=== PATIENT | male | born 1965 | race Hispanic/Latino ===

== ENCOUNTER 2019-11-04 14:16 | Inpatient (IN) | payer BC, OTHER ==
[~2019-11-04] VITALS: Ht 172.7 cm; Wt 81.6 kg
[2019-11-04] MEDS ORDERED: IOPAMIDOL 370 MG/ML 200 ML INFUS..BTL INJ ONE (14:49)
[2019-11-04] MEDS ORDERED: SODIUM CHLORIDE 0.9% 50ML 50 ML ONE (14:49)
--- OUTSIDE RECORDS SUMMARY | 2019-11-04 15:04 | XMS REPORT | Continuity of Care Document ---
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 Allergies, Adverse Reactions, Alerts This patient has no known allergies or adverse reactions. Social History Social Habit Start Date Stop Date Quantity Comments Source Sex Assigned At [facility] Alcohol intake 2016-08-03 00:00:00 2016-08-03 00:00:00 Current non-drinker of alcohol (finding) [facility] Smoking Status Start Date Stop Date Source Never smoker [facility] Medications Ordered Medication Name Filled Medication Name Start Date Stop Da te Current Medication? Ordering Clinician Indication Dosage Frequency Signature (SIG) Comments Components Source selenium sulfide 2.3 % Sham 2016-08-03 00:00:00 Yes Dandruff Apply to affected area. [facility] cetirizine (ZYRTEC) 10 mg tablet 2016-08-03 00:00:00 Yes 10mg QD Take 1 tablet by mouth daily. [facility] mometasone (NASONEX) 50 mcg/actuation nasal spray 2016-01-15 00:00:00 Yes Allergic rhinitis, unspecified allergic rhinitis trigger, unspecified rhinitis seasonality 2{spray} QD 2 Sprays by each nostril route daily. [facility] cetirizine (ZYRTEC) 10 mg tablet 2016-01-15 00:00:00 Yes Allergic rhinitis, unspecified allergic rhinitis trigger, unspecified rhinitis seasonality 10mg QD Take 1 tablet by mouth daily. [facility] triamcinolone (KENALOG) 0.1 % ointment 2015-12-19 00:00:00 Yes Rash and other nonspecific skin eruption Q.5D Apply to affected area 2 times daily. [facility] cetirizine (ZYRTEC) 10 mg tablet 2015-01-13 00:00:00 Yes Acute bronchitis with bronchospasm 10mg QD Take 1 tablet by mouth daily. [facility] albuterol (VENTOLIN HFA,PROVENTIL HFA,PROAIR HFA) 90 mcg/act uation inhaler 2015-01-13 00:00:00 Yes Acute bronchitis with bronchos pasm 2{puff} Inhale 2 Puffs by mouth 4 times daily as needed for Wheezing. [facility] Procedures This patient has no known procedures. Plan of Care Planned Activity Planned Date Details Comments Source Future Scheduled Test 2019-12-23 00:00:00 IMM Influenza Seas onal Dec to May (>/= 19 yrs) [code = IMM Influenza Seasonal Dec to May (>/= 19 yrs)] [facility] Future Scheduled Test 2014 00:00:00 Screening for fadia gnant neoplasm of colon (procedure) [code = 747068060] [facility] Encounters Start Date/Time End Date/Time Encounter Type Admission Type [facility] Care Department Encounter ID Source 2017-08-26 00:00:00 2017-08-26 00:00:00 Outpatient [facility] [id number] [facility] Results This patient has no known results.
--- OUTSIDE RECORDS SUMMARY | 2019-11-04 15:04 | XMS REPORT | Clinical Summary ---
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 bronchospasm Active albuterol (VENTOLIN Inhale 2 1 Month 0 HFA,PROVENTIL HFA,PROAIR Puffs by Supply 5 HFA) 90 mcg/actuation mouth 4 times inhalerIndications: Acute daily as bronchitis with needed for bronchospasm Wheezing. Active triamcinolone (KENALOG) Apply to 80 g 0 0.1 % affected area 6 ointmentIndications: Rash 2 times and other nonspecific daily. skin eruption Active mometasone (NASONEX) 50 2 Sprays by 17 g 2 mcg/actuation nasal each nostril 6 sprayIndications: route daily. Allergic rhinitis, unspecified allergic rhinitis trigger, unspecified rhinitis seasonality Active cetirizine (ZYRTEC) 10 mg Take 1 tablet 30 tablet 2 tabletIndications: by mouth 6 Allergic rhinitis, daily. unspecified allergic rhinitis trigger, unspecified rhinitis seasonality Active selenium sulfide 2.3 % Apply to 1 Bottle 0 ShamIndications: Dandruff affected 7 area. Active cetirizine (ZYRTEC) 10 mg Take 1 tablet 30 tablet 0 tablet by mouth 7 daily. Active Problems No known active problems Immunizations Name Administration Dates Next Due Influenza Vaccine 01/15/2016 (Deferred: Contr aindication), 01/13/2015 (Deferred: Vaccine Unavailab le) Social History Date Tobacco Use Types Packs/Day Years Used Never Smoker Drinks/Week oz/Week Comments Alcohol Use No Sex Assigned at Date Recorded Not on file Industry Job Start Date Occupation Not on file Not on file Not on file Travel End Travel History Travel Start No recent travel history available. Last Filed Vital Signs Not on file Plan of Treatment Health Maintenance Due Date Last Done Comments Colorectal Cancer Scrn 2014 Annual (FIT/FOBT) Age 50 to 75 IMM Influenza Seasonal 12/23/2019Dec to May (>/= 19 yrs) Results Not on fileafter 11/03/2018 Insurance Type Payer Benefit Subscriber ID Effective Phone Address Plan / Dates Group [facility] SELF-PAY SELF-PAY xxxxxx [id number] [id number] [place] [address] Guarantor Name Account Relation to Date of Phone Shauna sarmiento Address Type Patient Melissa Lowe Personal/F Head of 1965 [address] (Home) [place], [place] [address] (Self)
--- NOTE | 2019-11-04 15:44 | Diagnostic Imaging Report ---
EXAM: CT Chest WITH contrast- Pulmonary Embolism Protocol INDICATION: Shortness of breath , viral pneumonia COMPARISON: None TECHNIQUE: Chest was scanned utilizing a multidetector helical scanner from the lung apex through the level of the diaphragm after administration of IV contrast. Thin section reconstructions were obtained with special concentration on the pulmonary arteries. Coronal and sagittal reformations were obtained. Pulmonary embolism protocol was performed. IV CONTRAST: 100 cc of Isovue 370 RADIATION DOSE: Total DLP: 492 mGy*cm Dose modulation, iterative reconstruction, and/or weight based adjustment of the mA/kV was utilized to reduce the radiation dose to as low as reasonably achievable. COMPLICATIONS: None FINDINGS: LINES/ TUBES: None. PULMONARY ARTERIES: No filling defect is identified within the pulmonary arteries to the segmental level. The subsegmental pulmonary arteries are not well opacified. Main pulmonary artery measures 3.2 cm in diameter. No right heart strain. LUNGS AND AIRWAYS: The central airways are patent. Multifocal groundglass and consolidative opacities involve all lobes of both lungs, predominantly the lower lobes. PLEURA: The pleural spaces are clear. HEART AND MEDIASTINUM: Partially visualized thyroid gland appears unremarkable. No supraclavicular, axillary, mediastinal, hilar, or internal mammary lymphadenopathy. The heart is not enlarged. No pericardial effusion. UPPER ABDOMEN: 1.5 cm hypodense lesion in the right liver, most likely a cyst. No acute findings in the upper abdomen. BONES: No acute osseous injury. No suspicious lytic or blastic lesions. SOFT TISSUES: Unremarkable. IMPRESSION: Bilateral multifocal lower lobe predominant groundglass and consolidative opacities consistent with known viral pneumonia. No pulmonary embolism. Signed by: Oscar Carey MD on 11/04/2019 3:41 PM
[2019-11-04] MEDS ORDERED: DEXAMETHASONE SOD PHOS 10 MG/1 ML VIAL IV ONE (16:00)
[2019-11-04] MEDS ORDERED: CEFTRIAXONE SOD 1 GM VIAL IV ONE (16:00)
--- NOTE | 2019-11-04 16:08 | Emergency Department Note ---
History of Present Illnes History of Present Illness Chief Complaint: COVID PUI History of Present Illness This is a 53 year old male Chief Complaint Comment PT STATED HE TESTED POSTIVE FOR COVID LAST FRIDAY AND HE FEELS LIKE HE IS GETTING WORSE, PT COMPLAINS OF SOB, BODY ACHES, FEVER, AND INSOMNIA X7 DAYS, PT HAS BEEN TAKING STEROIDS AND AMOXICILLIN SINCE LAST WEEK, PT SATING 88% ON ROOM AIR, PT PLACED ON 2LNC AND IS NOW SATING 96%, NO DISRESS NOTED IN TRIAGE. . Historian: Patient Arrival Mode: Car Onset (how long ago): day(s) (5) Location: chest Quality: cough Radiation: Denies non-radiation, Denies back, Denies neck, Denies extremity, Denies abdomen, Denies periumbilical, Denies flank, Denies proximal, Denies distal, Denies other Severity: moderate Onset quality: gradual Duration (how long): day(s) (5) Timing of current episode: constant Progression: waxing and waning Chronicity: new Context: Denies recent illness, Denies recent surgery, Denies recent immobilization, Denies recent travel, Denies trauma/injury, Denies new medications, Denies hx of DVT/PE, Denies non-compliance w/ medications, Denies other Relieving factors: none Exacerbating factors: none Associated symptoms: Reports denies other symptoms, Reports cough, Reports fever/chills, Reports shortness of breath; Denies confusion, Denies chest pain, Denies diaphoresis, Denies headaches, Denies loss of appetite, Denies malaise, Denies nausea/vomiting, Denies rash, Denies seizure, Denies syncope, Denies weakness, Denies other Treatments prior to arrival: none Past Medical/Family History Physician Review I have reviewed the patient's past medical and family history. Any updates have been documented here. Past Medical History Recent Fever: Yes Clinical Suspicion of Infectio: No New/Unexplained Change in Ment: No Past Medical History: None Past Surgical History: None Social History Smoking Cessation: Never Smoker Counseling Performed: No Alcohol Use: None Any Illegal Drug Use: No Other Any Pre-Existing Lines (PICC,: No Review of Systems Review of Systems Constitutional: Reports as per HPI EENTM: Reports no symptoms Cardiovascular: Reports no symptoms Respiratory: Reports as per HPI Gastrointestinal: Reports no symptoms Genitourinary: Reports no symptoms Musculoskeletal: Reports no symptoms Integumentary: Reports no symptoms Neurological: Reports no symptoms Psychological: Reports no symptoms Endocrine: Reports no symptoms Hematological/Lymphatic: Reports no symptoms Physical Exam Related Data Allergies: Coded Allergies: No Known Allergies (Unverified , 11/04/19) Triage Vital Signs Vital Signs Date Time Temp Pulse Resp B/P (MAP) Pulse Ox O2 Delivery O2 Flow Rate FiO2 11/04/19 14:20 98.2 95 18 133/76 88 Room Air 11/04/19 14:25 2.0 Vital signs reviewed: Yes Physical Exam CONSTITUTIONAL Constitutional: Present well-developed, Present well-nourished HENT HENT: Present normocephalic, Present atraumatic, Present oropharynx clear/moist, Present nose normal HENT L/R: Present left ext ear normal, Present right ext ear normal EYES Eyes: Reports PERRL, Reports conjunctivae normal NECK Neck: Present ROM normal PULMONARY Pulmonary: Present effort normal, Present rhonchi (bilat) CARDIOVASCULAR Cardiovascular: Present regular rhythm, Present heart sounds normal, Present capillary refill normal, Present normal rate GASTROINTESTINAL Abdominal: Present soft, Present nontender, Present bowel sounds normal GENITOURINARY Genitourinary: Present exam deferred SKIN Skin: Present warm, Present dry MUSCULOSKELETAL Musculoskeletal: Present ROM normal NEUROLOGICAL Neurological: Present alert, Present oriented x 3, Present no gross motor or sensory deficits PSYCHOLOGICAL Psychological: Present mood/affect normal, Present judgement normal Results Laboratory Lab results reviewed: Yes Imaging Imaging results reviewed: Yes Critical Care Time Total Critical Care Time (min): 35 Critical care time exclusive o: separately billable procedures Critcal care necessary due to: other (hypoxia) Critcal care time spent by me: develop tx plan w patient/surrogate, discussion w consultants, discussion w primary provider, evaluation patient response to tx, examination of patient, obtaining hx from patient/surrogate, order/perform tx or interventions Assessment & Plan Medical Decision Making MDM pneumonia bronchitis Reassessment Reassessment same Assessment & Plan Final Impression: (1) Pneumonia due to COVID-19 virus (2) Hypoxia Depart Disposition: ADMITTED Last Vital Signs Date Time Temp Pulse Resp B/P (MAP) Pulse Ox O2 Delivery O2 Flow Rate FiO2 11/04/19 15:48 83 16 118/68 95 Nasal Cannula 2.0 8/13/20 14:20 98.2 Medications in the ED Iopamidol 74,000 mg STK-MED ONCE INJ ; Start 11/04/19 at 14:49; Stop 11/04/19 at 14:43; Status DC Sodium Chloride 50 ml @ ud STK-MED ONCE .ROUTE ; Start 11/04/19 at 14:49; Stop 11/04/19 at 14:43; Status DC Dexamethasone Sodium Phosphate 10 mg ONCE ONCE IV ; Start 11/04/19 at 16:00; Stop 11/04/19 at 16:01; Status UNV Ceftriaxone Sodium 1 gm ONCE ONCE IV ; Start 11/04/19 at 16:00; Stop 11/04/19 at 16:01; Status UNV CORAZON ROBINS MD Nov 04, 2019 16:07
[2019-11-04] MEDS ORDERED: CEFTRIAXONE SOD 1 GM/NS 50 ML 50 ML IV ONE ×2 (16:13→16:15)
[2019-11-04] MEDS ORDERED: SODIUM CHLORIDE 0.9% 1000ML 1,000 ML IV SCH (16:15)
--- NOTE | 2019-11-04 16:18 | NUR ---
[facility] CALLED FOR PATIENT TRANSFER ETA 45 MIN
--- OUTSIDE RECORDS SUMMARY | 2019-11-04 16:20 | XMS REPORT | Continuity of Care Document ---
Author Author [facility] t Organization [facility] Address [address] [place] [address] Phone Unavailable Care Team Providers Care Jail Guard Name Role Phone CORAZON ROBINS Unavailable Problems This patient has no known problems. Allergies, Adverse Reactions, Alerts This patient has no known allergies or adverse reactions. Social History Social Habit Start Date Stop Date Quantity Comments Source Sex Assigned At [facility] Alcohol intake 2016-08-03 00:00:00 2016-08-03 00:00:00 Current non-drinker of alcohol (finding) [facility] Smoking Status Start Date Stop Date Source Never smoker [facility] Medications Ordered Medication Name Filled Medication Name Start Date Stop Da te Current Medication? Ordering Clinician Indication Dosage Frequency Signature (SIG) Comments Components Source selenium sulfide 2.3 % Sham 2016-08-03 00:00:00 Yes Dandruff Apply to affected area. [facility] cetirizine (ZYRTEC) 10 mg tablet 2016-08-03 00:00:00 Yes 10mg QD Take 1 tablet by mouth daily. [facility] mometasone (NASONEX) 50 mcg/actuation nasal spray 2016-01-15 00:00:00 Yes Allergic rhinitis, unspecified allergic rhinitis trigger, unspecified rhinitis seasonality 2{spray} QD 2 Sprays by each nostril route daily. [facility] cetirizine (ZYRTEC) 10 mg tablet 2016-01-15 00:00:00 Yes Allergic rhinitis, unspecified allergic rhinitis trigger, unspecified rhinitis seasonality 10mg QD Take 1 tablet by mouth daily. [facility] triamcinolone (KENALOG) 0.1 % ointment 2015-12-19 00:00:00 Yes Rash and other nonspecific skin eruption Q.5D Apply to affected area 2 times daily. [facility] cetirizine (ZYRTEC) 10 mg tablet 2015-01-13 00:00:00 Yes Acute bronchitis with bronchospasm 10mg QD Take 1 tablet by mouth daily. [facility] albuterol (VENTOLIN HFA,PROVENTIL HFA,PROAIR HFA) 90 mcg/act uation inhaler 2015-01-13 00:00:00 Yes Acute bronchitis with bronchos pasm 2{puff} Inhale 2 Puffs by mouth 4 times daily as needed for Wheezing. [facility] Procedures This patient has no known procedures. Plan of Care Planned Activity Planned Date Details Comments Source Future Scheduled Test 2019-12-23 00:00:00 IMM Influenza Seas onal Dec to May (>/= 19 yrs) [code = IMM Influenza Seasonal Dec to May (>/= 19 yrs)] [facility] Scheduled Test 2014 00:00:00 Screening for fadia gnant neoplasm of colon (procedure) [code = 421020638] [facility] Encounters Start Date/Time End Date/Time Encounter Type Admission Type [facility] Facility Care Department Encounter ID Source 2017-08-26 00:00:00 2017-08-26 00:00:[address] [facility] [id number] [facility] Results Test Description Test Time Test Comments Results Result Comments Source CT CHEST WITH CONTRAST-HOPD 2019-11-04 15:36:00 [place] [address] Patient Name: SHANA LOWE MR #: [id number] : 1965 Age/Sex: 53/M Req #: [id number] Adm Physician: Ordered by: CORAZON ROBINS MD Report #: [id number] Location: [facility] Room/Bed: Procedure: HOPD/CT CHEST WITH CONTRAST-HOPD Exam Date: 11/04/19 Exam Time: 1528 REPORT STATUS: Signed EXAM: CT Chest WITH contrast- Pulmonary Embolism Protocol INDICATION: Shortness of breath , viral pneumonia COMPARISON: None TECHNIQUE: Chest was scanned utilizing a multidetector helical scanner from the lung apex through the level of the diaphragm after administration of IV contrast. Thin section reconstructions were obtained with special concentration on the pulmonary arteries. Coronal and sagittal reformations were obtained. Pulmonary embolism protocol was performed. IV CONTRAST: 100 cc of Isovue 370 RADIATION DOSE: Total DLP: 492 mGy*cm Dose modulation, iterative reconstruction, and/or weight based adjustment of the mA/kV was utilized to reduce the radiation dose to as low as reasonably achievable. COMPLICATIONS: None FINDINGS: LINES/ TUBES: None. PULMONARY ARTERIES: No filling defect is identified within the pulmonary arteries to the segmental level. The subsegmental pulmonary arteries are not well opacified. Main pulmonary artery measures 3.2 cm in diameter. No right heart strain. LUNGS AND AIRWAYS: The central airways are patent. Multifocal groundglass and consolidative opacities involve all lobes of both lungs, pr edominantly the lower lobes. PLEURA: The pleural spaces are clear. HEART AND MEDIASTINUM: Partially visualized thyroid gland appears unremarkable. No supraclavicular, axillary, mediastinal, hilar, or internal mammary lymphadenopathy. The heart is not enlarged. No pericardial effusion. UPPER ABDOMEN: 1.5 cm hypodense lesion in the right liver, most likely a cyst. No acute findings in the upper abdomen. BONES: No acute osseous injury. No suspicious lytic or blastic lesions. SOFT TISSUES: Unremarkable. IMPRESSION: Bilateral multifocal lower lobe predominant groundglass and consolidative opacities consistent with known viral pneumonia. No pulmonary embolism. Signed by: Stephanie Winston MD on 11/04/2019 3:41 PM Dictated By: STEPHANIE WINSTON MD [id number] Transcribed By: CHARLES on 11/04/19 1541 COPY TO: CORAZON ROBINS MD
--- OUTSIDE RECORDS SUMMARY | 2019-11-04 16:20 | XMS REPORT | Clinical Summary ---
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
[2019-11-04] MEDS ORDERED: ONDANSETRON HCL INJ 2MG/ML 2ML 2 MG/ML VIAL IV PRN (17:30)
[2019-11-04] MEDS ORDERED: GUAIFENESIN 600MG/DEXTROMETHORPHAN 30MG TABSR PO PRN (17:30)
[2019-11-04] MEDS ORDERED: ACETAMINOPHEN 325 MG TAB PO PRN (17:30)
[2019-11-04] MEDS ORDERED: ALBUTEROL SULFATE HFA 8GM INHALATION AEROSOL INH PRN (17:30)
[2019-11-04] MEDS ORDERED: HYDRALAZINE HCL 20 MG/ML VIAL IV PRN (17:30)
--- NOTE | 2019-11-04 17:45 | NUR ---
Phone report received from Willow GUTIERREZ, Free standing ED. Patient received to COVID unit in no acute distress. Supplemental oxygen in place 3L via nasal cannula. Patient was educated on fall risk precautions and to use the call light with needs. Patient verbalized understanding. Will continue to monitor.
[2019-11-04 18:00] VITALS: BP 124/79
--- NOTE | 2019-11-04 20:20 | NUR ---
pulmonary consult dictated [id number] imp Severe COVID 19 pneumonia Hypoxemia Transaminitis, likely COVID 19 related mild allergies mild GERD NON-smoker lifetime rec steroids check inflammatory markers remdesivir, follow LFTs (likely to improve) consider convalescent plasma based on progress over 1st day oxygen by protocol close supportive care ID consult Patient to receive Remdesivir fact sheet from staff. Patient knows it is an investigational drug. Patient is aware he can decline the medication and still receive treatment. Patient agrees to receive this medication. Thank you Dr Dumont.
[2019-11-04] MEDS: AZITHROMYCIN 500MG/NS 250 ML 250 ML IV SCH (20:27)
[2019-11-04] MEDS: ENOXAPARIN SOD INJ 40 MG/0.4 ML SYR SC SCH (20:27)
[2019-11-04 20:59] VITALS: BP 121/80
[2019-11-04] MEDS ORDERED: REMDESIVIR 200MG/NS 100ML 200 MG in SODIUM CHLORIDE 0.9% 100 ML 100 ML IV ONE (21:00)
[2019-11-04 21:08] VITALS: BP 121/80
[2019-11-04] MEDS: THIAMINE HCL 100 MG TAB PO SCH (21:44)
[2019-11-04] MEDS: TEMAZEPAM 15 MG CAP PO PRN (21:45)
--- NOTE | 2019-11-04 22:06 | Consultation ---
DATE OF CONSULTATION: 11/04/2019 Pulmonary Medicine Consult CHIEF COMPLAINT: COVID-19 pneumonia. HISTORY OF PRESENT ILLNESS: Mr. Lowe is a pleasant 53-year-old gentleman with COVID-19 pneumonia. The patient first experienced symptoms on Friday October 25, 2019. The patient had some sore throat. The patient went to doctor a few days later and started antibiotics and steroids. He was tested for coronavirus 19, which he tells me he was a positive on the test result he got. The patient, therefore, continued treatment as outpatient. However, he became more and more dyspneic. Today, he came to emergency room. Oxygen saturation was 88% on room air. He had a CAT scan of the lungs showing large pneumonia. I am consulted. PAST MEDICAL HISTORY: Mild allergies, mild GERD. MEDICATIONS: Pepto-Bismol. Rare ujan-njy-jorjhyc allergy medicines. Recent amoxicillin and steroids. ALLERGIES: NO KNOWN DRUG ALLERGIES. FAMILY HISTORY: Noncontributory. SOCIAL HISTORY: No smoking. No drinking. No drugs. 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 REVIEW OF SYSTEMS: GENERAL: No weight changes. OPHTHALMOLOGIC: No vision changes. ENT: No blood in mouth. ENDOCRINE: No thyroid disease. PULMONARY: No hemoptysis. CARDIAC: No heart attack. GI: No blood per rectum. : No bleeding when urinating. IMMUNOLOGIC: No lupus. DERMATOLOGIC: No rash. NEUROLOGIC: No seizures. OBJECTIVE: VITAL SIGNS: Afebrile right now, vital signs noted, reviewed per the chart record. Heart rate 76, blood pressure 124/79. GENERAL: In no acute distress. Alert and calm in bed. HEENT: Normocephalic and atraumatic. NECK: Supple. Throat midline. LUNGS: Bilateral air entry, few rhonchi. CARDIOVASCULAR: S1, S2. No murmurs, rubs, or gallops. ABDOMEN: Soft and nontender. EXTREMITIES: No clubbing. No cyanosis. There is no edema. INTEGUMENT: No rash. No purpura. LABORATORY DATA: 134 sodium, 3.7 potassium, 99 chloride, 22 bicarbonate, 13 BUN and 1.1 creatinine. AST 106, ALT 87, albumin 3.5. 13 white count, 46 hematocrit, 205 platelets. Chest radiography as above. IMPRESSION AND PLAN: 1. COVID-19 pneumonia. 2. Hypoxemia, severe. 3. Transaminitis, likely COVID-19 related. 4. Hyponatremia, mild. 5. Mild allergies. 6. Mild gastroesophageal reflux disease. Recommend steroids. Check inflammatory markers. Give remdesivir. The patient is asking for temazepam for recent insomnia, which I will give. Follow up closely. The patient at significant risk of due to large-sized pneumonia. it is very important prognostically. Continue oxygen by protocol. Thank you very much, Dr. Dumont for this consult. Please call for questions. MD COTY Joyner/MODL /[id number]
[2019-11-04 23:34] VITALS: BP 122/69
[2019-11-05] VITALS (8 sets, daily range): BP systolic 114–138; BP diastolic 69–90
[2019-11-05 05:42] LABS: BASOPHILS % 0.2 % (0.0-1.0); HEMOGLOBIN 14.2 g/dL (14.0-18.0); LYMPHOCYTES # (AUTO) 0.7 (1.0-3.2); LYMPHOCYTES % 11.4 % (18.0-39.1); MEAN CORPUSCULAR HEMOGLOBIN 29.1 pg (28-32); MEAN CORPUSCULAR VOLUME 88.1 fL (81-99); MONOCYTES # (AUTO) 0.3 (0.2-0.8); MONOCYTES % 4.1 % (4.4-11.3); NEUTROPHILS # (AUTO) 5.1 (2.1-6.9); NEUTROPHILS % 82.7 % (38.7-80.0); PLATELET COUNT 218 x10e3/uL (140-360); RED BLOOD COUNT 4.88 x10e6/uL (4.3-5.7); RED CELL DISTRIBUTION WIDTH 12.7 % (11.7-14.4)
[2019-11-05 06:06] LABS: ALANINE AMINOTRANSFERASE 110 IU/L (0-55); ALBUMIN 2.8 g/dL (3.5-5.0); ALBUMIN/GLOBULIN RATIO 0.6 (0.8-2.0); ALKALINE PHOSPHATASE 99 IU/L (40-150); ANION GAP 13.9 mmol/L (8-16); BLOOD UREA NITROGEN 15 mg/dL (7-26); BUN/CREATININE RATIO 20 (6-25); CARBON DIOXIDE 26 mmol/L (22-29); CHLORIDE 106 mmol/L (98-107); CREATININE, SERUM 0.76 mg/dL (0.72-1.25); EST GLOMERULAR FILTRATION RATE > 60 ML/MIN (60-); GLUCOSE 134 mg/dL (74-118); POTASSIUM 4.9 mmol/L (3.5-5.1); SODIUM 141 mmol/L (136-145)
--- NOTE | 2019-11-05 06:07 | NUR ---
SPOKE WITH JOANN CASAS'S OFFICE SADDLE STITCHING MACHINE OPERATOR REGARDING THIS CONSULT
[2019-11-05 06:28] LABS: LACTATE DEHYDROGENASE 332 IU/L (125-220)
[2019-11-05 06:36] LABS: CREATINE KINASE 50 IU/L (30-200); LIPASE 28 U/L (8-78)
[2019-11-05 06:44] LABS: FERRITIN > 2000.00 ng/mL (21.81-274.66)
--- NOTE | 2019-11-05 07:00 | NUR ---
Report received from PM shift nurse, [place]. Patient found resting in bed in no acute distress. Patient was educated on fall risk precautions and to call with needs. Patient states no needs at this time. Patient verbalized understanding. Will continue to monitor.
[2019-11-05] MEDS: FAMOTIDINE 20 MG TAB PO SCH ×2 (07:55→16:51)
[2019-11-05] MEDS: ZINC SULFATE 220 MG CAP PO SCH (08:28)
[2019-11-05] MEDS: ENOXAPARIN SOD INJ 40 MG/0.4 ML SYR SC SCH ×2 (08:28→20:51)
[2019-11-05] MEDS: THIAMINE HCL 100 MG TAB PO SCH ×2 (08:28→20:51)
[2019-11-05] MEDS: ASCORBIC ACID 500 MG TAB PO SCH ×2 (08:28→16:51)
[2019-11-05] MEDS: CEFTRIAXONE SOD 1 GM/NS 50 ML 50 ML IV SCH (08:52)
[2019-11-05] MEDS: DEXAMETHASONE SOD PHOS INJ 4 MG/ML VIAL IV SCH (08:52)
--- NOTE | 2019-11-05 09:01 | Diagnostic Imaging Report ---
EXAM: CHEST SINGLE (PORTABLE) DATE: 11/05/2019 7:15 AM INDICATION: The prior pneumonia COMPARISON: CT chest without contrast from 11/04/2019 FINDINGS: The trachea is midline. There are patchy airspace opacities identified bilaterally with a lower lung predominance, as noted on the prior CT examination. There is no evidence for pneumothorax or significant pleural effusion. The cardiomediastinal silhouette is within normal limits. No acute osseous abnormalities identified. IMPRESSION: Patchy airspace opacities identified bilaterally concerning for a multifocal/viral infectious process. Signed by: Dr. Alexander Daniel MD on 11/05/2019 8:58 AM
[2019-11-05 10:29] LABS: LYMPHOCYTES % (MANUAL) 9 % (19-48); MONOCYTES % (MANUAL) 3 % (3.4-9.0); NEUTROPHILS % (MANUAL) 88 % (40-74)
--- NOTE | 2019-11-05 14:25 | Consultation ---
DATE OF CONSULTATION: HISTORY OF PRESENT ILLNESS: Mr. Lowe, who is a very pleasant 53-year-old male, comes in with shortness of breath and cough. He has been sick for 5 days. The patient's symptoms started on October 24 and went to see the doctor, was tested and he was positive. The patient comes in the emergency room with shortness of breath. His O2 saturation was 88. He had a CAT scan of the lung, which showed pneumonia. The patient when I saw him, he is currently on 4 L. PHYSICAL EXAMINATION: GENERAL: Currently alert. VITAL SIGNS: Stable, currently afebrile. HEENT: Not icteric. NECK: Supple. CHEST: Crackles. HEART: S1 and S2. ABDOMEN: Soft. IMPRESSION: COVID-19, superimposed bacterial pneumonia. Rocephin 1 g daily 5 days, azithromycin 500 mg daily for 3 days, dexamethasone 6 mg daily for 10 days, remdesivir 200 mg daily now and then 100 mg daily for 4 days. ADDENDUM: Discussed with the patient. The patient did agree to remdesivir. The patient is aware it is still investigational drug. We will assess daily. I will follow with you. Discussed with medical team. MD GIO Wahl/BRODY /[id number]
[2019-11-05] MEDS ORDERED: REMDESIVIR 100MG/NS 100ML 100 MG IV SCH (15:00)
--- NOTE | 2019-11-05 16:01 | Progress Note ---
DATE: SUBJECTIVE: The patient feels better. He is on 4 L of oxygen. He still has some dyspnea and some cough. PHYSICAL EXAMINATION: VITAL SIGNS: The patient is afebrile. The vital signs are stable. HEENT: Shows no facial swelling or erythema. The oropharynx is normal. LYMPHATIC: Shows no submandibular, cervical, or supraclavicular adenopathy. CARDIAC: Reveals regular rate and rhythm with normal S1 and S2. LUNGS: Auscultation of lungs reveals rhonchorous breath sounds bilaterally. There is no wheezing. ABDOMEN: Soft and nontender. There is no rebound or guarding. EXTREMITIES: Shows no leg edema or calf tenderness. No cyanosis or clubbing. SKIN: Shows no rashes. IMPRESSION: 1. Viral pneumonia and COVID-19 infection. 2. Viral hepatitis secondary to COVID. 3. Gastroesophageal reflux. PLAN: 1. Continue dexamethasone and antibiotics. 2. Remdesivir. 3. Continue oxygen. 4. Out of bed as tolerated. Jerod Verdugo MD [facility]/MODL /[id number]
[2019-11-05] MEDS: AZITHROMYCIN 500MG/NS 250 ML 250 ML IV SCH (16:51)
[2019-11-05] MEDS: REMDESIVIR 100MG/NS 100ML 100 MG in SODIUM CHLORIDE 0.9% 100 ML 100 ML IV SCH (21:00)
[2019-11-05] MEDS: TEMAZEPAM 15 MG CAP PO PRN (22:47)
[2019-11-06] VITALS (8 sets, daily range): BP systolic 102–132; BP diastolic 69–82
[2019-11-06 04:05] LABS: BASOPHILS % 0.1 % (0.0-1.0); HEMATOCRIT 41.2 % (38.2-49.6); HEMOGLOBIN 13.8 g/dL (14.0-18.0); LYMPHOCYTES % 11.9 % (18.0-39.1); MEAN CORPUSCULAR HEMOGLOBIN 29.1 pg (28-32); MEAN CORPUSCULAR HGB CONC 33.5 g/dL (31-35); MEAN CORPUSCULAR VOLUME 86.9 fL (81-99); MONOCYTES # (AUTO) 0.5 (0.2-0.8); MONOCYTES % 6.3 % (4.4-11.3); NEUTROPHILS # (AUTO) 6.5 (2.1-6.9); NEUTROPHILS % 80.6 % (38.7-80.0); PLATELET COUNT 225 x10e3/uL (140-360); RED BLOOD COUNT 4.74 x10e6/uL (4.3-5.7); RED CELL DISTRIBUTION WIDTH 12.6 % (11.7-14.4)
[2019-11-06 04:22] LABS: ALANINE AMINOTRANSFERASE 126 IU/L (0-55); ALBUMIN 2.6 g/dL (3.5-5.0); ALBUMIN/GLOBULIN RATIO 0.7 (0.8-2.0); ALKALINE PHOSPHATASE 90 IU/L (40-150); ANION GAP 15.2 mmol/L (8-16); BLOOD UREA NITROGEN 22 mg/dL (7-26); BUN/CREATININE RATIO 28 (6-25); CALCIUM 8.6 mg/dL (8.4-10.2); CARBON DIOXIDE 22 mmol/L (22-29); CHLORIDE 107 mmol/L (98-107); CREATININE, SERUM 0.78 mg/dL (0.72-1.25); EST GLOMERULAR FILTRATION RATE > 60 ML/MIN (60-); GLUCOSE 122 mg/dL (74-118); POTASSIUM 4.2 mmol/L (3.5-5.1); SODIUM 140 mmol/L (136-145)
--- NOTE | 2019-11-06 06:58 | NUR ---
REPORT RECEIVED FROM GREGG GUTIERREZ, PM SHIFT. PATIENT RECEIVED RESTING IN BED IN NO ACUTE DISTRESS. PATIENT EDUCATED ON FALL RISK AND TO CALL WITH NEEDS. PATIENT VERBALIZED UNDERSTANDING. CALL LIGHT AND BELONGINGS WITHIN REACH. WILL CONTINUE TO MONITOR.
[2019-11-06] MEDS: CEFTRIAXONE SOD 1 GM/NS 50 ML 50 ML IV SCH (07:51)
[2019-11-06] MEDS: FAMOTIDINE 20 MG TAB PO SCH ×2 (07:51→17:04)
[2019-11-06] MEDS: DEXAMETHASONE SOD PHOS INJ 4 MG/ML VIAL IV SCH (07:52)
[2019-11-06] MEDS: ENOXAPARIN SOD INJ 40 MG/0.4 ML SYR SC SCH ×2 (07:52→21:00)
[2019-11-06] MEDS: ZINC SULFATE 220 MG CAP PO SCH (07:52)
[2019-11-06] MEDS: ASCORBIC ACID 500 MG TAB PO SCH ×2 (07:52→17:04)
[2019-11-06] MEDS: THIAMINE HCL 100 MG TAB PO SCH ×2 (07:52→21:00)
--- NOTE | 2019-11-06 11:40 | NUR ---
VENIPUNCTURE PERFORMED TO RIGHT FOREARM USING ASEPTIC TECHNIQUE FOR MD ORDERED LABS: CMP, CBC WITH DIFF. PRESSURE HELD; BANDAID APPLIED. PT TOLERATED WELL. TUBES LABELED AND INITIALED AND WALKED TO CLINICAL LAB.
--- NOTE | 2019-11-06 12:09 | Progress Note ---
DATE: SUBJECTIVE: Mr. Lowe is doing better. No new complaints. PHYSICAL EXAMINATION: VITAL SIGNS: Stable, afebrile. HEENT: He is not icteric. NECK: Supple. CHEST: Clear. HEART: S1, S2. ABDOMEN: Soft. Bowel sounds present. EXTREMITIES: No edema. SKIN: No rash. IMPRESSION AND PLAN: Coronavirus disease-19, to finish the course of treatment, five days of remdesivir, five days of Rocephin, 3 days of azithromycin, Lovenox as ordered, and also on albuterol and dexamethasone. We talked again about convalescent plasma. He is going to think about it. He is really not too eager to have it, which is fine, so we will await. MD GIO Whal/BRODY /[id number]
[2019-11-06] MEDS: AZITHROMYCIN 500MG/NS 250 ML 250 ML IV SCH (17:49)
[2019-11-06] MEDS: REMDESIVIR 100MG/NS 100ML 100 MG in SODIUM CHLORIDE 0.9% 100 ML 100 ML IV SCH (21:00)
[2019-11-06] MEDS: TEMAZEPAM 15 MG CAP PO PRN (23:20)
[2019-11-07] VITALS (8 sets, daily range): BP systolic 111–148; BP diastolic 67–89
[2019-11-07 05:33] LABS: ALANINE AMINOTRANSFERASE 128 IU/L (0-55); ALBUMIN 2.7 g/dL (3.5-5.0); ALBUMIN/GLOBULIN RATIO 0.8 (0.8-2.0); ALKALINE PHOSPHATASE 91 IU/L (40-150); ANION GAP 14.6 mmol/L (8-16); BLOOD UREA NITROGEN 20 mg/dL (7-26); BUN/CREATININE RATIO 25 (6-25); CALCIUM 8.4 mg/dL (8.4-10.2); CARBON DIOXIDE 24 mmol/L (22-29); CHLORIDE 105 mmol/L (98-107); EST GLOMERULAR FILTRATION RATE > 60 ML/MIN (60-); GLUCOSE 101 mg/dL (74-118); POTASSIUM 4.6 mmol/L (3.5-5.1); SODIUM 139 mmol/L (136-145)
--- NOTE | 2019-11-07 06:45 | Diagnostic Imaging Report ---
EXAMINATION: CHEST SINGLE (PORTABLE) INDICATION: ^covid ^[id number] ^[id number] COMPARISON: 11/05/2019 FINDINGS: AP view TUBES and LINES: Questionable left IJ central line with tip projecting over left brachycephalic vein pressures external tubing. LUNGS: Lungs are well inflated. Bilateral airspace opacities, slightly improved when compared to prior exam. PLEURA: No pleural effusion or pneumothorax. HEART AND MEDIASTINUM: The cardiomediastinal silhouette is unremarkable. BONES AND SOFT TISSUES: No acute osseous lesion. Soft tissues are unremarkable. UPPER ABDOMEN: No free air under the diaphragm. IMPRESSION: Bilateral airspace opacities, slightly improved when compared to prior exam. Signed by: Dr. Kamar Ramos MD on 11/07/2019 6:41 AM
--- NOTE | 2019-11-07 06:50 | NUR ---
COVID POSITIVE PT. REPORT GIVEN BY PM SHIFT RNGREGG. PATIENT RECEIVED RESTING IN BED, HOB UP 30 DEGREES IN NO ACUTE DISTRESS. PT IS ABLE TO MAKE NEEDS KNOWN AND WAS EDUCATED ON FALL RISK PRECAUTIONS TO CALL NURSE WITH ANY NEEDS. PT VERBALIZED UNDERSTANDING. SUPPLEMENTAL OXYGEN VIA NASAL CANNULA IN PLACE. CALL LIGHT AND BELONGINGS AND BSC PLACED NEARBY. WILL CONTINUE TO MONITOR
[2019-11-07 07:00] LABS: BASOPHILS % 0.2 % (0.0-1.0); HEMATOCRIT 41.3 % (38.2-49.6); HEMOGLOBIN 13.6 g/dL (14.0-18.0); LYMPHOCYTES # (AUTO) 1.2 (1.0-3.2); LYMPHOCYTES % 14.3 % (18.0-39.1); MEAN CORPUSCULAR HEMOGLOBIN 28.9 pg (28-32); MEAN CORPUSCULAR HGB CONC 32.9 g/dL (31-35); MEAN CORPUSCULAR VOLUME 87.9 fL (81-99); MONOCYTES # (AUTO) 0.6 (0.2-0.8); NEUTROPHILS # (AUTO) 6.5 (2.1-6.9); NEUTROPHILS % 77.5 % (38.7-80.0); PLATELET COUNT 257 x10e3/uL (140-360); RED CELL DISTRIBUTION WIDTH 12.4 % (11.7-14.4)
[2019-11-07] MEDS: FAMOTIDINE 20 MG TAB PO SCH ×2 (07:53→17:05)
[2019-11-07] MEDS: THIAMINE HCL 100 MG TAB PO SCH ×2 (07:53→21:20)
[2019-11-07] MEDS: DEXAMETHASONE SOD PHOS INJ 4 MG/ML VIAL IV SCH (07:53)
[2019-11-07] MEDS: ASCORBIC ACID 500 MG TAB PO SCH ×2 (07:53→17:05)
[2019-11-07] MEDS: ZINC SULFATE 220 MG CAP PO SCH ×2 (07:53→09:00)
[2019-11-07] MEDS: CEFTRIAXONE SOD 1 GM/NS 50 ML 50 ML IV SCH (07:53)
[2019-11-07] MEDS: ENOXAPARIN SOD INJ 40 MG/0.4 ML SYR SC SCH ×2 (07:54→21:20)
--- NOTE | 2019-11-07 19:35 | Progress Note ---
DATE: SUBJECTIVE: The patient feels better. He is off oxygen. Tomorrow is his last remdesivir. PHYSICAL EXAMINATION: VITAL SIGNS: Blood pressure is 137/83, saturation is 100%. HEENT: Shows no facial swelling or erythema. CARDIAC: Reveals regular rate and rhythm with normal S1, S2. LUNGS: Auscultation of lungs reveals rhonchorous breath sounds bilaterally. There is no wheezing. ABDOMEN: Soft and nontender. There is no rebound or guarding. EXTREMITIES: Shows no leg edema or calf tenderness. There is no cyanosis or clubbing. SKIN: Shows no rashes. NEUROLOGICAL: Shows no focal abnormalities. LABORATORY DATA: White blood cell count is 8.3 and hemoglobin is 13.6. The platelet count is 257,000. The BUN to creatinine ratio is 20 to 0.8 and the other electrolytes are within normal limits. Albumin is 2.7. RADIOGRAPHIC DATA: Chest x-ray shows bilateral airspace opacities. IMPRESSION: 1. Viral pneumonia and COVID-19 infection. 2. Viral hepatitis secondary to COVID. 3. GE reflux. PLAN: 1. Complete remdesivir tomorrow. Discharge home after remdesivir was completed. 2. Complete antibiotics and dexamethasone. 3. Out of bed as tolerated. Jerod Verdugo MD [facility]/BRODY /[id number]
[2019-11-07] MEDS: REMDESIVIR 100MG/NS 100ML 100 MG in SODIUM CHLORIDE 0.9% 100 ML 100 ML IV SCH (21:20)
[2019-11-08] VITALS: BP 118/82
[2019-11-08] MEDS: TEMAZEPAM 15 MG CAP PO PRN (00:02)
[2019-11-08 04:00] VITALS: BP 102/75
[2019-11-08 04:23] LABS: BASOPHILS % 0.1 % (0.0-1.0); HEMATOCRIT 41.6 % (38.2-49.6); LYMPHOCYTES # (AUTO) 1.3 (1.0-3.2); LYMPHOCYTES % 17.2 % (18.0-39.1); MEAN CORPUSCULAR HGB CONC 33.7 g/dL (31-35); MEAN CORPUSCULAR VOLUME 86.3 fL (81-99); MONOCYTES # (AUTO) 0.6 (0.2-0.8); MONOCYTES % 8.5 % (4.4-11.3); NEUTROPHILS # (AUTO) 5.4 (2.1-6.9); NEUTROPHILS % 73.2 % (38.7-80.0); PLATELET COUNT 230 x10e3/uL (140-360); RED BLOOD COUNT 4.82 x10e6/uL (4.3-5.7); RED CELL DISTRIBUTION WIDTH 12.2 % (11.7-14.4)
[2019-11-08 04:40] LABS: ALANINE AMINOTRANSFERASE 121 IU/L (0-55); ALBUMIN 2.8 g/dL (3.5-5.0); ALBUMIN/GLOBULIN RATIO 0.8 (0.8-2.0); ALKALINE PHOSPHATASE 88 IU/L (40-150); ANION GAP 14.4 mmol/L (8-16); BLOOD UREA NITROGEN 16 mg/dL (7-26); BUN/CREATININE RATIO 21 (6-25); CALCIUM 8.6 mg/dL (8.4-10.2); CARBON DIOXIDE 25 mmol/L (22-29); CHLORIDE 104 mmol/L (98-107); CREATININE, SERUM 0.77 mg/dL (0.72-1.25); EST GLOMERULAR FILTRATION RATE > 60 ML/MIN (60-); GLUCOSE 104 mg/dL (74-118); POTASSIUM 4.4 mmol/L (3.5-5.1); SODIUM 139 mmol/L (136-145)
--- NOTE | 2019-11-08 06:56 | NUR ---
REPORT RECEIVED FROM PM SHIFT RNGREGG. PT RECEIVED RESTING IN BED IN NO ACUTE DISTRESS. NASAL CANNULA IN PLACE. PT IS ABLE TO MAKE NEEDS KNOWN. PT WAS EDUCATED ON FALL RISK PRECAUTIONS AND TO CALL WITH ANY NEEDS. CALL LIGHT AND BELONGINGS PLACED NEARBY. WILL CONTINUE TO MONITOR. Addendum: 11/08/19 at 0806 by Janice Oshea RN OMIT NASAL CANNULA IN PLACE. INSERT PATIENT ON ROOM AIR
[2019-11-08 07:00] VITALS: BP 95/68
--- NOTE | 2019-11-08 07:43 | NUR ---
infectious disease progress note Late entry for November 07, 2019 Patient seen and examined chart reviewed discussed with medical team please refer to the orders Patient in general he is improving he patient feels better. He is off oxygen. Tomorrow is his last remdesivir. PHYSICAL EXAMINATION: VITAL SIGNS: Blood pressure is 137/83, saturation is 100%. HEENT: Shows no facial swelling or erythema. CARDIAC: Reveals regular rate and rhythm with normal S1, S2. LUNGS: Auscultation of lungs reveals rhonchorous breath sounds bilaterally. There is no wheezing. ABDOMEN: Soft and nontender. There is no rebound or guarding. EXTREMITIES: Shows no leg edema or calf tenderness. There is no cyanosis or clubbing. SKIN: Shows no rashes. NEUROLOGICAL: Shows no focal abnormalities. LABORATORY DATA: White blood cell count is 8.3 and hemoglobin is 13.6. The platelet count is 257,000. The BUN to creatinine ratio is 20 to 0.8 and the other electrolytes are within normal limits. Albumin is 2.7. RADIOGRAPHIC DATA: Chest x-ray shows bilateral airspace opacities. IMPRESSION: 1. Viral pneumonia and COVID-19 infection. 2. Viral hepatitis secondary to COVID. 3. GE reflux. Continue with plan of care is ordered to continue supportive care discussed with medical team please see orders
--- NOTE | 2019-11-08 07:44 | NUR ---
Infectious disease progress note November 08, 2019 Patient seen and examined chart reviewed the events noted he patient feels better. He is off oxygen. PHYSICAL EXAMINATION: VITAL SIGNS: Blood pressure is 137/83, saturation is 100%. HEENT: Shows no facial swelling or erythema. CARDIAC: Reveals regular rate and rhythm with normal S1, S2. LUNGS: Auscultation of lungs reveals rhonchorous breath sounds bilaterally. There is no wheezing. ABDOMEN: Soft and nontender. There is no rebound or guarding. EXTREMITIES: Shows no leg edema or calf tenderness. There is no cyanosis or clubbing. SKIN: Shows no rashes. NEUROLOGICAL: Shows no focal abnormalities. LABORATORY DATA: White blood cell count is 8.3 and hemoglobin is 13.6. The platelet count is 257,000. The BUN to creatinine ratio is 20 to 0.8 and the other electrolytes are within normal limits. Albumin is 2.7. RADIOGRAPHIC DATA: Chest x-ray shows bilateral airspace opacities. IMPRESSION: 1. Viral pneumonia and COVID-19 infection. 2. Viral hepatitis secondary to COVID. 3. GE reflux Patient can be discharged home He is infectious for 20 days since the onset of symptoms. no need to repeat PCR Could be discharged home with cough syrup [id number] albuterol for cough if needed supportive care no antibiotic no anticoagulation no steroid
[2019-11-08] MEDS: FAMOTIDINE 20 MG TAB PO SCH (08:57)
[2019-11-08] MEDS: ASCORBIC ACID 500 MG TAB PO SCH (08:57)
[2019-11-08] MEDS: DEXAMETHASONE SOD PHOS INJ 4 MG/ML VIAL IV SCH (08:57)
[2019-11-08] MEDS: ENOXAPARIN SOD INJ 40 MG/0.4 ML SYR SC SCH (08:57)
[2019-11-08] MEDS: THIAMINE HCL 100 MG TAB PO SCH (08:57)
[2019-11-08] MEDS: ZINC SULFATE 220 MG CAP PO SCH ×3 (08:57→10:18)
[2019-11-08] MEDS: CEFTRIAXONE SOD 1 GM/NS 50 ML 50 ML IV SCH (08:57)
[2019-11-08] MEDS ORDERED: ASPIRIN325 MG PO (10:28)
[2019-11-08] MEDS ORDERED: PROAIR HFA INH8.5 GM INH (10:28)
--- NOTE | 2019-11-08 11:00 | NUR ---
LAST DOSE OF REMDESEVIR IV GIVEN EARLY PER DR. CASAS. PT HAS DISCHARGE ORDERS FOR TODAY.
[2019-11-08] MEDS: REMDESIVIR 100MG/NS 100ML 100 MG in SODIUM CHLORIDE 0.9% 100 ML 100 ML IV SCH (11:44)
[2019-11-08 12:00] VITALS: BP 128/85
--- NOTE | 2019-11-08 13:00 | NUR ---
PT DISCHARGED HOME WITH FAMILY VIA PRIVATE VEHICLE. PERIPHERAL IV DISCONTINUED;CATHETER TIP INTACT WITHOUT RESISTANCE. PRESSURE DRESSING APPLIED. PT TOLERATED WELL. PATIENT RECEIVED 2 WRITTEN PRESCRIPTIONS, DISCHARGE INSTRUCTIONS AND EDUCATION. PT VERBALIZED UNDERSTANDING AND WILL SCHEDULE F/U APPOINTMENTS.
--- NOTE | 2019-11-08 15:44 | Progress Note ---
DATE: SUBJECTIVE: The patient is feeling better. He is eager to go home. PHYSICAL EXAMINATION: VITAL SIGNS: The blood pressure is 128/85 and saturation is 95% on room air. Pulse is 71. HEENT: Shows no facial swelling or erythema. CARDIAC: Reveals regular rate and rhythm with normal S1 and S2. LUNGS: Auscultation of lungs reveals rhonchorous breath sounds bilaterally. There is no wheezing. ABDOMEN: Soft and nontender. There is no rebound or guarding. EXTREMITIES: Shows no leg edema or calf tenderness. There is no cyanosis or clubbing. SKIN: Shows no rashes. NEUROLOGICAL: Shows no focal abnormalities. IMPRESSION: 1. Viral pneumonia and COVID-19 infection. 2. Viral hepatitis. 3. GE reflux. PLAN: 1. The patient will be discharged today. 2. Complete antibiotics and dexamethasone as outpatient. MD ANATOLIY Girard/BRODY /[id number]
--- NOTE | 2019-11-09 03:12 | Discharge Summary ---
ADMISSION DIAGNOSES: Coronavirus disease 2019 pneumonia with acute respiratory distress, transaminitis secondary to coronavirus disease 2019 pneumonia. DISCHARGE DIAGNOSES: Coronavirus disease 2019 pneumonia with acute respiratory distress, transaminitis secondary to coronavirus disease 2019 pneumonia, rule out bacteremia. MEDICAL HISTORY: None. SURGICAL HISTORY: None. FAMILY HISTORY: None. SOCIAL HISTORY: None. HOSPITAL COURSE: A 54-year-old male admits with complaints of shortness of breath, dyspnea on exertion, fever, productive cough, and body aches since 10/25/2019. He tested positive for COVID on 10/28/2019. The symptoms continued to worsen, so he came to the ER. On admission, his COVID test was positive and CT of the chest showed bilateral multifocal lower lobe predominant ground-glass and consolidative opacities consistent with known viral pneumonia. No PE. The patient was started on oxygen, Lovenox, Decadron, remdesivir, antibiotics and vitamin. The patient was weaned successfully and on his last stay in the hospital, the patient is no longer needing oxygen. He did not qualify for home oxygen as well. He will discharge home with new prescriptions for albuterol inhaler and aspirin daily. The patient will follow up with primary care in 1 to [address] Grewal in 3 weeks. The patient understands instructions and agrees to plan. Vital signs stable, the patient is afebrile. Dictated by Georgie Burns NP MD [facility]/MODL /[id number]
== END 2019-11-08 13:00 | disposition home or self-care (01) | DRG 177 ==
LOC: FSED 14:34 → ERHOLD 16:11 → IMCU 19:08
PROVIDERS: ADMIT Internal Medicine; ATTEND Internal Medicine
PROC: XW043E5 Introduction of Remdesivir Anti-infective into Central Vein, Percutaneous Approach, New Technology Group 5 (ICD-10-PCS; principal; 2019-11-04)
DX: U07.1 COVID-19 (principal); J12.89 Other viral pneumonia; J80 Acute respiratory distress syndrome; J15.9 Unspecified bacterial pneumonia; E87.1 Hypo-osmolality and hyponatremia; B19.9 Unspecified viral hepatitis without hepatic coma; R09.02 Hypoxemia; K21.9 Gastro-esophageal reflux disease without esophagitis
CPT/HCPCS: 36415; 71045; 71260; 80053; 82550; 82728; 82948; 83615; 83690; 85025; 85379; 86140; 87040; 99284; J0456; J0696; J1100; J1650; J3411; J7030; Q9967; U0002